=== PATIENT | male | born 1960 | race Caucasian/White ===

== ENCOUNTER 2016-10-14 21:37 | Observation (INO) | payer SELFPAY ==
[~2016-10-14] VITALS: Ht 167.6 cm; Wt 116.8 kg
[2016-10-14] MEDS ORDERED: LISI20TA3 PO (21:51)
[2016-10-14] MEDS ORDERED: TERA5CA PO (21:51)
[2016-10-14] MEDS ORDERED: ASPI1TAB PO (21:51)
[2016-10-14] MEDS ORDERED: AMLO5TAB2 PO (21:51)
[2016-10-14] MEDS ORDERED: METO25TA74 PO (21:51)
[2016-10-14 23:08] LABS: BASO % 0.3 % (0.0-1.0); EOS % 0.7 % (0.0-3.0); LARGE UNSTAINED CELL # 0.2 K/mm3 (0.0-0.4); LARGE UNSTAINED CELL % 2.7 % (0.0-4.0); LYMPH # 1.8 K/mm3 (1.5-4.5); LYMPH % 22.9 % (24.0-44.0); MEAN CORPUSCULAR HGB CONC 33.4 g/dl (32.0-36.5); MEAN CORPUSCULAR VOLUME 86.8 fl (80.0-96.0); MONO # 0.4 K/mm3 (0.0-0.8); MONO % 5.2 % (0.0-5.0); NEUTROPHILS # 4.8 K/mm3 (1.8-7.7); NEUTROPHILS % 68.3 % (36.0-66.0); PLATELET COUNT, AUTOMATED 192 k/mm3 (150-450); RED CELL DISTRIBUTION WIDTH 14.8 % (11.5-14.5)
[2016-10-14 23:14] LABS: ANION GAP 7 MEQ/L (8-16); BLOOD UREA NITROGEN 23 MG/DL (7-18); CALCIUM LEVEL 8.6 MG/DL (8.5-10.1); CARBON DIOXIDE LEVEL 31 MEQ/L (21-32); CHLORIDE LEVEL 104 MEQ/L (98-107); CREATININE FOR GFR 1.52 MG/DL (0.70-1.30); GLOMERULAR FILTRATION RATE 50.9 (>56); GLUCOSE, FASTING 135 MG/DL (70-105); POTASSIUM SERUM 3.7 MEQ/L (3.5-5.1); SODIUM LEVEL 142 MEQ/L (136-145)
[2016-10-14 23:18] LABS: VENOUS O2 SATURATION 81.8 % (60.0-80.0); VENOUS PARTIAL PRESSURE CO2 49.4 mmHg (38.0-50.0); VENOUS PARTIAL PRESSURE O2 44.9 mmHg (30.0-50.0)
--- NOTE | 2016-10-14 23:40 | REPUSA ---
CT of the head Clinical history: seizure. Technique: Multiple axial CT images were obtained through the head without administration of contrast . Comparison: None. Findings: The ventricles and sulci are symmetric bilaterally. There is a small focal area of low atte nuation demonstrated in the anterior right basal ganglia. There is no evidence of acute hemorrhage or infarct. There is no midline shift, mass effect, or extra-axial fluid collection. The osseous struct ures are unremarkable. The visualized paranasal sinuses and mastoid air cells are clear. Impression: Small focal areas of low attenuation in the anterior right basal ganglia. These could rep resent small lacunar infarcts of indeterminate age. No definitive acute hemorrhage or infarct is iden tified however. If there is continued clinical concern, MRI would be beneficial to evaluate the age o f these lesions.
[2016-10-15 00:30] LABS: METHADONE URINE NEGATIVE (NEGATIVE)
[2016-10-15] MEDS ORDERED: NS 1,000 ML IV ONE (00:30)
--- NOTE | 2016-10-15 00:44 | REP ---
Clinical: Cough. Technique: PA and lateral. Comparison: None. Findings: Mediastinum and cardiac silhouette are normal. Lung lee demonstrate mild chronic-appearing changes. Superimposed perihilar and basilar atelectasis cannot be excluded suggesting the possibility of bronchitis. No focal consolidation, effusion, or pneumothorax. Skeletal structures intact. Impression: No prior exams for comparison. Cannot exclude subtle scattered atelectasis and possible bronchitis. If the patient remains symptomatic consider chest CT for further investigation. Signed by Darius Alexis MD 10/15/2016 12:36 A
[2016-10-15] MEDS ORDERED: NS 1,000 ML IV SCH (02:29)
[2016-10-15] MEDS ORDERED: ACETAMINOPHEN TAB 650MG DOSE (2X325MG) PO PRN (02:30)
--- NOTE | 2016-10-15 05:00 | REPUSA ---
CLINICAL HISTORY: Syncope. COMMENTS: Real time sonography with duplex doppler of the carotid arteries bilaterally was performed. Bilateral atheromatous plaque of the common carotid arteries extending to the proximal aspect of the internal and external carotid arteries. Normal peak systolic velocities. Normal antegrade flow in the vertebral arteries. IMPRESSION: Bilateral less than 50% stenosis of the internal carotid artery secondary to soft plaques. Antegrade flow in the vertebral arteries. Thank you for your kind referral of this patient.
[2016-10-15] MEDS ORDERED: HEPARIN SOD (PORCINE) 5000 UNITS/ML VIAL SC SCH (06:00)
[2016-10-15 06:30] VITALS: BP 136/69
--- NOTE | 2016-10-15 06:52 | HPEPDOC ---
General Date of Admission Oct 14, 2016 at 22:55 Other Providers [facility] [place] [place], [place] Attending Physician: FUNMILAYO KERN DO Chief Complaint The patient is a 55-year-old male admitted with a reason for visit of Syncope And Collapse. Source: Patient Exam Limitations: No limitations Timing/Duration: Momentarily Severity: Mild Associated Symptoms: Denies Symptoms History of Present Illness 55-year-old man, history of hypertension, CAD, presented with syncope and collapse. This lasted for a few minutes. There was also some shaking of upper extremities. The center lost his consciousness for less than a minute. There were no apparent bright urinary or stool incontinence. There are no paralysis, numbness, tingling, sensory or motor loss, dysarthria, dysphagia. There are no trauma. Home Medications Scheduled (Lisinopril/Hydrochlorothi 20-25 mg) 1 Tab Tab, 1 TAB PO DAILY, (Reported) TAKES AT NOON, MIGHT HAVE TOOK TWICE TODAY BY ACCIDENT Amlodipine Besylate (Amlodipine Besylate) 5 Mg Tab, 5 MG PO DAILY, (Reported) TAKES AT NOON, MIGHT HAVE TOOK TWICE TODAY BY ACCIDENT Metoprolol Succinate (Metoprolol Succinate ER) 25 Mg Tab, 25 MG PO DAILY, ( Reported) TAKES AT NOON, MIGHT HAVE TOOK TWICE TODAY BY ACCIDENT Terazosin HCl (Terazosin HCl) 5 Mg Cap, 5 MG PO DAILY, (Reported) TAKES AT NOON, MIGHT HAVE TOOK TWICE TODAY BY ACCIDENT Allergies Coded Allergies: No Known Drug Allergy (Verified Allergy, Unknown, 10/14/16) Past Medical History Medical History Hypertension, CAD Surgical History Appendectomy, hydrocele repair Review of Symptoms Constitutional: Denies: Chills, Fever, Night Sweats Eyes: Denies: Pain, Vision change ENT: Denies: Head Aches, Ear Pain, Dysphagia Skin: Denies: Rash, Lesions, Breakdown Pulmonary: Denies: Dyspnea, Cough Cardiovascular: Reports: Lt Headedness, Denies: Chest Pain, Palpitations, Orthopnea, Paroxysmal Noc. Dyspnea Gastrointestinal: Denies: Nausea, Vomiting, Abdominal Pain, Diarrhea Genitourinary: Denies: Dysuria, Frequency, Incontinence, Retention Hematologic: Denies: Bruising, Bleeding Excessively Musculoskeletal: Denies: Neck Pain, Back Pain, Joint Pain, Muscle Pain, Spasms Neurological: Denies: Weakness, Numbness, Change in speech, Confusion Psych: Reports: Mood Normal, Denies: Depression, Memory Issues Physical Examination General Exam: Positive: Alert, No Acute Distress Eye Exam: Positive: PERRLA, Conjunctiva & lids normal, EOMI, Negative: Sclera icteric ENT Exam: Positive: Atraumatic, Mucous membr. moist/pink, Pharynx Normal Neck Exam: Positive: Supple, Negative: JVD, thyromegaly Chest Exam: Positive: Clear to auscultation, Normal air movement Heart Exam: Positive: Rate Normal, Regular Rhythm, Normal S1, Normal S2, Negative: Murmurs, Rubs Telemetry: Positive: No significant arrhythmia Abdomen Exam: Positive: Normal bowel sounds, Soft, Negative: Tenderness, Hepatospenomegaly Extremity Exam: Positive: Normal pulses, Negative: Clubbing, Cyanosis, Edema Skin Exam: Positive: Nl turgor and temperature, Negative: Breakdown, Lesion Neuro Exam: Positive: Normal Gait, Normal Speech, Cranial Nerves 3-12 NL, Reflexes 2+ Psych Exam: Positive: Mental status NL, Mood NL, Oriented x 3 Vital Signs Vital Signs Date Time Temp Pulse Resp B/P (MAP) Pulse Ox O2 Delivery O2 Flow Rate FiO2 10/15/16 05:46 89 92 10/15/16 05:45 160/79 (106) 10/14/16 21:46 97.4 20 Room Air Laboratory Data Labs 24H Laboratory Tests 2 10/14/16 22:01: White Blood Count 7.0, Red Blood Count 5.57, Hemoglobin 16.1, Hematocrit 48.3, Mean Corpuscular Volume 86.8, Mean Corpuscular Hemoglobin 29.0, Mean Corpuscular Hemoglobin Concent 33.4, Red Cell Distribution Width 14.8H, Platelet Count 192, Neutrophils (%) (Auto) 68.3H, Lymphocytes (%) (Auto) 22.9L, Monocytes (%) (Auto) 5.2H, Eosinophils (%) (Auto) 0.7, Basophils (%) (Auto) 0.3 , Neutrophils # (Auto) 4.8, Lymphocytes # (Auto) 1.8, Monocytes # (Auto) 0.4, Eosinophils # (Auto) 0.0, Basophils # (Auto) 0.0, Large Unclassified Cells % 2.7 , Large Unclassified Cells # 0.2, Anion Gap 7L, Glomerular Filtration Rate 50.9L , Lactic Acid Level 1.7, Blood Urea Nitrogen 23H, Creatinine 1.52H, Sodium Level 142, Potassium Level 3.7, Chloride Level 104, Carbon Dioxide Level 31, Calcium Level 8.6, Total Creatine Kinase 165, Creatine Kinase MB 7.0H, Creatine Kinase MB Relative Index 4.24H, Troponin I < 0.02, Thyroid Stimulating Hormone ( TSH) 9.080H, Ethyl Alcohol Level < 0.003 10/14/16 23:01: Bedside Glucose (Misc Panel) 146H 10/14/16 23:10: Blood Gas Bicarbonate Standard 24.0, Venous Blood pH 7.347, Venous Blood Partial Pressure CO2 49.4, Venous Blood Partial Pressure O2 44.9, Venous Blood Total Carbon Dioxide 28.0, Venous Blood HCO3 26.5, Venous Blood Oxygen Saturation 81.8H, Venous Blood Base Excess 0.0 10/14/16 23:57: Urine Appearance HAZY, Urine Color YELLOW, Urine pH 5.0, Urine Specific [place] 1.017, Urine Protein 1+H, Urine Glucose (UA) NEGATIVE, Urine Ketones TRACEH, Urine Urobilinogen 0.2, Urine Bilirubin NEGATIVE, Urine Leukocyte Esterase NEGATIVE, Urine Blood NEGATIVE, Urine Nitrite NEGATIVE, Urine WBC (Auto) 1, Urine RBC (Auto) 1, Urine Hyaline Casts (Auto) 16, Urine Bacteria (Auto) NEGATIVE, Urine Squamous Epithelial Cells 0, Urine Mucus (Auto) SMALL, Urine Sperm (Auto) , Urine Amphetamines Screen NEGATIVE, Urine Benzodiazepines Screen NEGATIVE, Urine Opiates Screen NEGATIVE, Urine Methadone Screen NEGATIVE, Urine Barbiturates Screen NEGATIVE, Urine Phencyclidine Screen NEGATIVE, Urine Cocaine Metabolite Screen NEGATIVE, Urine Cannabinoids Screen NEGATIVE CBC/BMP Laboratory Tests 10/14/16 22:01 Red Blood Count 5.57, Mean Corpuscular Volume 86.8, Mean Corpuscular Hemoglobin 29.0, Mean Corpuscular Hemoglobin Concent 33.4, Red Cell Distribution Width 14.8 H, Neutrophils (%) (Auto) 68.3 H, Lymphocytes (%) (Auto) 22.9 L, Monocytes (%) (Auto) 5.2 H, Eosinophils (%) (Auto) 0.7, Basophils (%) (Auto) 0.3, Neutrophils # (Auto) 4.8, Lymphocytes # (Auto) 1.8, Monocytes # (Auto) 0.4, Eosinophils # (Auto) 0.0, Basophils # (Auto) 0.0, Calcium Level 8.6, Total Creatine Kinase 165 Assessment/Plan 55-year-old male , history of hypertension, CAD, presented with syncope and collapse. There are also some suspicion of seizure. Patient does not seem to be seizure disorder as patient has no history of seizure disorder and there was no witnessed seizure episode Problems (1) Syncope and collapse Status: Acute Problem Text: Syncope and collapse. CT of the head did not show any acute pathology. Continue cardiac exercise physiologist. Check troponin. EKG, carotid Doppler also get EEG to rule out any seizure. Patient will be admitted for observation. Tobacco abuse. Continue with nicotine patch Plan / VTE VTE Prophylaxis Ordered?: Yes Plan IVF: Initiate Diagnostics: Repeat Labs in AM, TTE Anticipated Discharge: Home DAMASO PAGE MD Oct 15, 2016 06:52
[2016-10-15 07:02] LABS: BASO % 0.2 % (0.0-1.0); EOS # 0.1 K/mm3 (0.0-0.50); LARGE UNSTAINED CELL # 0.2 K/mm3 (0.0-0.4); LARGE UNSTAINED CELL % 2.9 % (0.0-4.0); LYMPH # 2.6 K/mm3 (1.5-4.5); LYMPH % 28.9 % (24.0-44.0); MEAN CORPUSCULAR HEMOGLOBIN 28.3 pg (27.0-33.0); MEAN CORPUSCULAR HGB CONC 32.9 g/dl (32.0-36.5); MONO # 0.4 K/mm3 (0.0-0.8); MONO % 4.7 % (0.0-5.0); NEUTROPHILS % 62.4 % (36.0-66.0); PLATELET COUNT, AUTOMATED 190 k/mm3 (150-450); RED CELL DISTRIBUTION WIDTH 14.8 % (11.5-14.5); WHITE BLOOD COUNT 8.1 K/mm3 (4.0-10.0)
[2016-10-15 07:17] LABS: ALBUMIN 3.1 GM/DL (3.2-5.2); ALBUMIN/GLOBULIN RATIO 0.82 (1.00-1.93); ALKALINE PHOSPHATASE 56 U/L (45-117); ALT/SGPT 34 U/L (12-78); ANION GAP 7 MEQ/L (8-16); AST/SGOT 17 U/L (15-37); BILIRUBIN,TOTAL 0.3 MG/DL (0.2-1.0); BLOOD UREA NITROGEN 21 MG/DL (7-18); CALCIUM LEVEL 8.1 MG/DL (8.5-10.1); CARBON DIOXIDE LEVEL 28 MEQ/L (21-32); CHLORIDE LEVEL 107 MEQ/L (98-107); CREATININE FOR GFR 1.27 MG/DL (0.70-1.30); GLOMERULAR FILTRATION RATE > 60.0 (>56); GLUCOSE, FASTING 104 MG/DL (70-105); POTASSIUM SERUM 3.3 MEQ/L (3.5-5.1); SODIUM LEVEL 142 MEQ/L (136-145); TOTAL PROTEIN 6.9 GM/DL (6.4-8.2)
[2016-10-15 07:18] LABS: FREE T4 0.85 NG/DL (0.76-1.46)
--- NOTE | 2016-10-15 07:32 | ECGEPIP ---
Stationary ECG Study [facility] - ED Test Date: 2016-10-14 Pat Name: HAYDEN BELL Department: Room: [place] [address] Gender: M Curriculum Assistant: HarrisB: 1960 Requested By: REYNA Nieto Order Number: [id number] Reading MD: Mars Hines Measurements Intervals [place] Rate: 86 P: 52 MT: 140 QRS: 30 QRSD: 89 T: 45 QT: 343 QTc: 411 Interpretive Statements SINUS RHYTHM POSSIBLE RIGHT VENTRICULAR CONDUCTION DELAY SEPTAL MYOCARDIAL INFARCTION, OF INDETERMINATE AGE NO PRIORS Electronically Signed On 10-15-2016 7:32:38 EDT by Mars Hines
[2016-10-15 08:00] VITALS: BP 124/61
[2016-10-15] MEDS ORDERED: POTASSIUM CHLORIDE 10 MEQ SR TABLET PO ONE (08:30)
[2016-10-15] MEDS ORDERED: amLODIPine 5 MG TAB PO SCH (09:00)
[2016-10-15] MEDS ORDERED: NICOTINE 14 MG/24 HR TRANSDERMAL TD SCH (09:00)
[2016-10-15] MEDS ORDERED: TERAZOSIN 5 MG CAP PO SCH (09:00)
[2016-10-15 10:26] VITALS: BP 180/77
[2016-10-15] MEDS ORDERED: METOPROLOL SUCC *XL* 25MG TAB (TopROL *XL*) PO SCH (12:00)
--- NOTE | 2016-10-16 00:35 | IPN ---
DATE: 10/15/2016 Patient was admitted to the hospital at approximately 3 a.m. Patient was seen during the morning rounds, and patient decided to sign out against medical advice (AMA). Patient feels that he does not want to stay in the hospital any longer. I spent extensive time with the patient to explain the risks and benefits for the hospitalization and patient expressed understanding, but he insists signing out AMA. BRIAN
== END 2016-10-15 17:01 | disposition left against medical advice (07) ==
LOC: EDBD 21:37 → M ED 22:54 → M ED INP 22:55
PROVIDERS: ADMIT Internal Medicine; ATTEND Internal Medicine
DX: R55 Syncope and collapse (principal); Z53.21 Procedure and treatment not carried out due to patient leaving prior to being seen by health care provider; I10 Essential (primary) hypertension; I25.10 Atherosclerotic heart disease of native coronary artery without angina pectoris; Z79.899 Other long term (current) drug therapy; F17.210 Nicotine dependence, cigarettes, uncomplicated
CPT/HCPCS: 36415; 70450; 71020; 80048; 80053; 80306; 81001; 82550; 82553; 82803; 83605; 84439; 84443; 85025; 93005; 93041; 93880; 94760; 96372; 99285; G0480